=== PATIENT | female | born 1980 | race Caucasian/White ===

== ENCOUNTER 2016-12-18 09:30 | Emergency (ER) | payer OTHER, MEDICAID ==
[~2016-12-18] VITALS: Ht 160 cm; Wt 50.0 kg
[~2016-12-18 09:30] MED LIST: AZIT1 PO; MACR100C37 PO; PREN0.01 PO; PROM25SU8 PO
[2016-12-18 09:34] VITALS: BP 136/73; PULSE 61; RESP 15; TEMP 98; O2SAT 97
[2016-12-18 09:47] VITALS: BP 112/68; PULSE 62; RESP 16; TEMP 97.8; O2SAT 100
[2016-12-18 09:54] VITALS: BP 112/68; PULSE 56; RESP 16; O2SAT 100
[2016-12-18] MEDS ORDERED: SODIUM CHLOR 0.9% 1000 ML INJ 1,000 ML IV ONE (10:00)
[2016-12-18] MEDS ORDERED: SODIUM CHLORIDE 0.9% FLUSH 5 ML FLUSH IVF PRN (10:00)
--- NOTE | 2016-12-18 10:11 | PD ---
HPI Chief Complaint: General Weakness Time Seen by Provider: 09:41 Travel History International Travel<30 days: No Contact w/Intl Traveler<30days: No Traveled to known affect area: No History of Present Illness HPI Patient is a 36-year-old female who presents to emergency room with complaints of generalized weakness. Patient reports that 7 years ago, she was diagnosed with hemachromatosis and elevated liver enzyme tests. Patient reports that she has not follow-up with her primary care doctor for workup of this diagnosis. Patient reports that for the past few months, she has lost at least 30 pounds, reports that she feels overall generalized weakness and reports that she has noticed that she has been losing a lot of hair. Patient with no fevers or chills, no chest pain or shortness of breath. Patient with reports of no abdominal pain, nausea vomiting,. Denies any recent travels or trips. Reports that her symptoms have progressively the past few months and she wanted to come to the emergency room for workup of her hemachromatosis and generalized weakness. [facility] Past Medical History Diminished Hearing: No Medical other: Yes (HEMACHROMATITIS) Influenza Vaccination: No ?: Not LMP: 12/07/2016 : 4 Para: 3 Past Surgical History Gynecologic Surgery: Yes (CYSTS) Tonsillectomy: Yes (1990) Family History Family History: Negative Social History Alcohol Use: No Tobacco Use: No Substance Use: Yes (MARIJUANA) Allergies-Medications (Allergen,Severity, Reaction): Coded Allergies: No Known Allergies (Verified , 12/18/16) Reported Meds & Prescriptions Reported Meds & Active Scripts Active Flagyl (Metronidazole) 500 Mg Tab 500 Mg PO BID 7 Days Review of Systems General / Constitutional: No: Fever Eyes: No: Visual changes HENT: No: Headaches Cardiovascular: No: Chest Pain or Discomfort Respiratory: No: Shortness of Breath Gastrointestinal: No: Abdominal Pain Genitourinary: No: Dysuria Musculoskeletal: No: Pain Skin: No Rash Neurologic: Positive: Weakness Psychiatric: No: Depression Endocrine: No: Polydipsia Hematologic/Lymphatic: No: Easy Bruising Physical Exam Narrative GENERAL: No acute distress, nontoxic SKIN: Warm and dry. HEAD: Atraumatic. Normocephalic. EYES: Pupils equal and round. No scleral icterus. No injection or drainage. ENT: No nasal bleeding or discharge. Mucous membranes pink and moist. NECK: Trachea midline. No JVD. CARDIOVASCULAR: Regular rate and rhythm. No murmur appreciated. RESPIRATORY: No accessory muscle use. Clear to auscultation. Breath sounds equal bilaterally. GASTROINTESTINAL: Abdomen soft, non-tender, nondistended. Hepatic and splenic margins not palpable. MUSCULOSKELETAL: No obvious deformities. No clubbing. No cyanosis. No edema. NEUROLOGICAL: Awake and alert. No obvious cranial nerve deficits. Motor grossly within normal limits. Normal speech. PSYCHIATRIC: Appropriate mood and affect; insight and judgment normal. Data Data Last Documented VS Vital Signs Date Time Temp Pulse Resp B/P Pulse Ox O2 Delivery O2 Flow Rate FiO2 12/18/16 10:41 59 16 108/68 100 Room Air 12/18/16 09:47 97.8 Orders Complete Blood Count With Diff (12/18/16 09:52) Comprehensive Metabolic Panel (12/18/16 09:52) Prothrombin Time / Inr (Pt) (12/18/16 09:52) Act Partial Throm Time (Ptt) (12/18/16 09:52) Urinalysis - C+S If Indicated (12/18/16 09:52) Iv Access Insert/Monitor (12/18/16 09:52) Sodium Chloride 0.9% Flush (Ns Flush) (12/18/16 10:00) Electrocardiogram (12/18/16 09:52) Ed Urine Pregnancytest Poc (12/18/16 09:52) Thyroid Stimulating Hormone (12/18/16 09:52) Sodium Chlor 0.9% 1000 Ml Inj (Ns 1000 M (12/18/16 10:00) Gc And Chlamydia Pcr (12/18/16 10:58) Metronidazole 500 Mg Inj (Flagyl 500 Mg (12/18/16 11:00) Metronidazole (Flagyl) (12/18/16 11:45) Labs Laboratory Tests Test 12/18/16 10:00 White Blood Count 5.5 TH/MM3 Red Blood Count 4.34 MIL/MM3 Hemoglobin 12.6 GM/DL Hematocrit 37.8 % Mean Corpuscular Volume 87.2 FL Mean Corpuscular Hemoglobin 29.1 PG Mean Corpuscular Hemoglobin 33.4 % Concent Red Cell Distribution Width 12.9 % Platelet Count 212 TH/MM3 Mean Platelet Volume 10.0 FL Neutrophils (%) (Auto) 51.3 % Lymphocytes (%) (Auto) 39.6 % Monocytes (%) (Auto) 7.9 % Eosinophils (%) (Auto) 0.7 % Basophils (%) (Auto) 0.5 % Neutrophils # (Auto) 2.8 TH/MM3 Lymphocytes # (Auto) 2.2 TH/MM3 Monocytes # (Auto) 0.4 TH/MM3 Eosinophils # (Auto) 0.0 TH/MM3 Basophils # (Auto) 0.0 TH/MM3 CBC Comment DIFF FINAL Differential Comment Prothrombin Time 11.2 SEC Prothromb Time International 1.0 RATIO Ratio Activated Partial 27.5 SEC Thromboplast Time Urine Color YELLOW Urine Turbidity HAZY Urine pH 8.5 Urine Specific [place] 1.013 Urine Protein NEG mg/dL Urine Glucose (UA) NEG mg/dL Urine Ketones NEG mg/dL Urine Occult Blood NEG Urine Nitrite NEG Urine Bilirubin NEG Urine Urobilinogen LESS THAN 2.0 MG/DL Urine Leukocyte Esterase SMALL Urine RBC 1 /hpf Urine WBC 2 /hpf Urine Squamous Epithelial 6 /hpf Cells Urine Amorphous Sediment RARE Urine Bacteria RARE /hpf Urine Trichomonas RARE Microscopic Urinalysis Comment CULT NOT INDICATED Sodium Level 140 MEQ/L Potassium Level 4.1 MEQ/L Chloride Level 106 MEQ/L Carbon Dioxide Level 28.5 MEQ/L Anion Gap 6 MEQ/L Blood Urea Nitrogen 8 MG/DL Creatinine 0.72 MG/DL Estimat Glomerular Filtration 92 ML/MIN Rate Random Glucose 79 MG/DL Calcium Level 8.4 MG/DL Total Bilirubin 0.3 MG/DL Aspartate Amino Transf 13 U/L (AST/SGOT) Alanine Aminotransferase 15 U/L (ALT/SGPT) Alkaline Phosphatase 57 U/L Total Protein 7.3 GM/DL Albumin 3.5 GM/DL Thyroid Stimulating Hormone 4.070 uIU/ML [address] [place] [address] Medical Decision Making Medical Screen Exam Complete: Yes Emergency Medical Condition: Yes Interpretation(s) EKG at 1012: Sinus bradycardia at 50 beats for minute, QT/QTc 441/414, no acute ST-T wave changes Vital Signs Date Time Temp Pulse Resp B/P Pulse Ox O2 Delivery O2 Flow Rate FiO2 12/18/16 09:54 56 16 112/68 100 Room Air 12/18/16 09:47 97.8 62 16 112/68 100 12/18/16 09:34 98.0 61 15 136/73 97 Differential Diagnosis Anemia, hypothyroidism, electrolyte abnormality Narrative Course Patient is a 36-year-old female who was diagnosed with hemochromatosis about 7 years ago, presents to emergency room with complaints of overall weakness for the past few months with increased weight loss and her last period patient with no for fevers or chills, chest pain or shortness of breath or abdominal pain, reports that it has been 7 years since her diagnosis and she has not followed up with a pcp for this as [place] Patient here for general evaluation. Patient's vital signs are stable. Patient is nontoxic on evaluation. CBC, CMP , EKG and TSH ordered for further evaluation of symptoms. cbc WBC 5.5 Hemoglobin 12.6 Hematocrit 37.8 Platelets 212 bmp sodium 140 cl: 106 potassium: 4.1 chloride 28.5 bun 8 cr: 0.72 ast: 13 alt 15 alk phos: 57 tsh 4.070 INR 1.0 UA: Small esterase, negative nitrite, rare bacteria, rare trichomonoas - patient denies vaginal discharge, will send g/c and treat for Trichomonas this patient should not have any trace of Trichomonas in urine. Patient does not want to be treated for possible GC, she will follow up with cultures. Understands that all sexual partners will need to be evaluated for possible Trichomonas and if positive, sexual partners will need to be treated as well. Reviewed TSH level with patient. Understands need to follow-up with her primary care doctor for further workup of her abnormal thyroid studies. A copy of pt's lab work given to her at discharge. Patient will follow up with pcp and return to ER as needed Diagnosis Primary Impression: Abnormal TSH Additional Impressions: Weakness Infection due to trichomonas Patient Instructions: General Instructions Additional Instructions: Please provide patient with a copy of her labs at discharge Please follow-up with your primary care doctor as soon as possible Please return to emergency room as needed Please return to emergency room if symptoms progress or worsen Please follow-up with all cultures from today Please make sure all sexual partners are evaluate for possible Trichomonas and if positive, partners will need to be treated. Do not engage in sexual activity until all partners are treated Scripts Metronidazole (Flagyl)500 Mg Rax048 Mg PO BID 7 Days Ref 0 Prov:Sandra Pedraza DO 12/18/16 Disposition: 01 DISCHARGE HOME Condition: Stable Sandra Pedraza DO Dec 18, 2016 10:11
[2016-12-18 10:15] LABS: AUTOMATED NEUTROPHIL # 2.8 TH/MM3 (1.8-7.7); BASOPHIL % 0.5 % (0.0-2.0); EOSINOPHIL % 0.7 % (0.0-4.0); HEMATOCRIT 37.8 % (35.0-46.0); HEMO FLAGS DIFF FINAL; LYMPH % 39.6 % (9.0-44.0); LYMPHOCYTE # 2.2 TH/MM3 (1.0-4.8); MEAN CELL VOLUME 87.2 FL (80.0-100.0); MEAN CORPUSCULAR HEMOGLOBIN 29.1 PG (27.0-34.0); MEAN CORPUSCULAR HGB CONC 33.4 % (32.0-36.0); MONO % 7.9 % (0.0-8.0); NEUT % 51.3 % (16.0-70.0); PLATELET COUNT 212 TH/MM3 (150-450); RED BLOOD COUNT 4.34 MIL/MM3 (4.00-5.30); RED CELL DISTRIBUTION WIDTH 12.9 % (11.6-17.2); WHITE BLOOD COUNT 5.5 TH/MM3 (4.0-11.0)
[2016-12-18 10:21] LABS: APTT (PATIENT) 27.5 SEC (24.3-30.1); PROTHROMBIN TIME - PATIENT 11.2 SEC (9.8-11.6)
[2016-12-18 10:23] LABS: BACTERIA, URINE RARE /hpf; BLOOD, URINE NEG (NEG); COMMENT (UR) CULT NOT INDICATED; CULTURE IF INDICATED CULT NOT INDICATED; GLUCOSE,URINE NEG (NEG); KETONE, URINE NEG (NEG); NITRITE,URINE NEG (NEG); PH, URINE 8.5 (5.0-8.5); SQUAMOUS EPITHELIAL CELL URINE 6 /hpf (0-5); URINE COLOR YELLOW (YELLW/STRAW)
[2016-12-18 10:25] LABS: ANION GAP 6 MEQ/L (5-15); AST (GOT) 13 U/L (15-37); BICARBONATE 28.5 MEQ/L (21.0-32.0); BLOOD UREA NITROGEN 8 MG/DL (7-18); CHLORIDE 106 MEQ/L (98-107); GLOMERULAR FILTRATION RATE 92 ML/MIN (>89); POTASSIUM 4.1 MEQ/L (3.5-5.1); SODIUM (NA) 140 MEQ/L (136-145)
[2016-12-18 10:36] LABS: ALKALINE PHOSPHATASE 57 U/L (45-117); ALT (GPT) 15 U/L (10-53); TOTAL BILIRUBIN ADULT 0.3 MG/DL (0.2-1.0)
[2016-12-18 10:41] VITALS: BP 108/68; PULSE 59; RESP 16; O2SAT 100
[2016-12-18] MEDS ORDERED: METR-1 PO (10:58)
[2016-12-18] MEDS ORDERED: metroNIDAZOLE 500 MG INJ 100 ML IV ONE (11:00)
[2016-12-18] MEDS ORDERED: metroNIDAZOLE 500 MG TAB PO ONE (11:45)
[2016-12-18 15:50] LABS: CHLAMYDIA PCR DETECTED (NOT DETECT); NEISSERIA PCR DETECTED (NOT DETECT)
--- NOTE | 2016-12-19 11:55 | EKG ---
Date Performed: 12/18/2016 Time Performed: 10:12:02 PTAGE: 36 years EKG: SINUS BRADYCARDIA WITH SINUS ARRHYTHMIA BORDERLINE ECG NO PREVIOUS TRACING DOCTOR: Jami Toney Interpretating Date/Time 12/19/2016 11:54:23
== END 2016-12-18 12:21 | disposition home or self-care (01) ==
LOC: NEPC 09:30
DX: R79.89 Other specified abnormal findings of blood chemistry (principal); R53.1 Weakness; A59.9 Trichomoniasis, unspecified; R00.1 Bradycardia, unspecified; I49.8 Other specified cardiac arrhythmias
CPT/HCPCS: 80053; 81001; 84443; 84703; 85025; 85610; 85730; 87491; 87591; 93005; 96360; 99285; J7030